=== PATIENT | male | born 1975 | race Caucasian/White ===

== ENCOUNTER 2018-05-27 19:08 | Emergency (ER) | payer BC ==
[2018-05-27] MEDS ORDERED: HYDROmorphone 0.5 MG/0.5 ML SYRINGE IVP STA (20:08)
[2018-05-27] MEDS ORDERED: ONDANSETRON 4 MG/2 ML VIAL IVP STA (20:08)
--- NOTE | 2018-05-27 20:28 | ED ---
Fall HPI <Deacon Hemphill - Last Filed: 05/27/18 21:30> - General Source: patient Mode of arrival: wheelchair <Fariba Ambrocio - Last Filed: 05/28/18 04:49> - General Chief Complaint: Fall Stated Complaint: Fell off sea wall 8 to 10 ft legs injury Time Seen by Provider: 05/27/18 19:38 - History of Present Illness Initial Comments: 42-year-old male patient presents the emergency department today for evaluation after sustaining a fall from a seawall. He states the fall was approximately 5 feet. Patient states approximately half an hour prior to arrival he was going down to get some rocks from the water when he slipped and fell striking his head on a rock. Patient is complaining of severe right shoulder pain. He is also complaining of pain to his right knee. Patient denies any current headache. States he was not having any neck pain. Patient states he does not believe he lost consciousness. He denies any nausea or vomiting currently. Denies any chest pain, shortness of breath, or abdominal pain. Patient denies any back pain, dizziness, weakness, numbness, or tingling. (Fariba Ambrocio) - Related Data Home Medications Medication Instructions Recorded Confirmed Ranitidine HCl [Zantac] 75 mg PO DAILY PRN 05/27/18 05/27/18 Previous Rx's Medication Instructions Recorded Hydrocodone/Acetaminophen [[place] 1 tab PO Q6HR PRN #12 tab 05/27/18 5-325] Ibuprofen [Motrin] 600 mg PO Q8HR PRN #30 tab 05/27/18 Allergies Allergy/AdvReac Type Severity Reaction Status Date / Time No Known Allergies Allergy Verified 05/27/18 19:44 Review of Systems ROS Other: All systems not noted in ROS Statement are negative. <Deacon Hemphill - Last Filed: 05/27/18 21:30> ROS Other: All systems not noted in ROS Statement are negative. <Fariba Ambrocio - Last Filed: 05/28/18 04:49> ROS Statement: Those systems with pertinent positive or pertinent negative responses have been documented in the HPI. Past Medical History Past Medical History: No Reported History History of Any Multi-Drug Resistant Organisms: None Reported Past Surgical History: No Surgical Hx Reported Past Psychological History: No Psychological Hx Reported Smoking Status: Never smoker Past Alcohol Use History: None Reported Past Drug Use History: None Reported <Fariba Ambrocio M - Last Filed: 05/28/18 04:49> General Exam Limitations: no limitations General appearance: alert, in no apparent distress, other (This is a well- developed, well-nourished adult male patient in mild distress related to pain. Vital signs upon presentation are temperature 98.6F, pulse 87, respirations 18 , blood pressure 138/93, pulse ox 98% on room air.) Head exam: Present: normocephalic, normal inspection, other (Patient has 3 cm stellate laceration noted to the left eyebrow, surrounding swelling and ecchymosis.) Eye exam: Present: normal appearance, PERRL, EOMI, periorbital tenderness (Left upper orbit. No bony step off or deformity), other (No conjunctival injection, hyphema, or evidence of globe injury to the left eye. ). Absent: scleral icterus, conjunctival injection, nystagmus, periorbital swelling ENT exam: Present: normal exam, normal oropharynx, mucous membranes moist Neck exam: Present: normal inspection, full ROM, other (Nontender, no step-off, no deformity to firm midline palpation of the posterior cervical spine. Full range of motion without pain or limitation.). Absent: tenderness, meningismus, lymphadenopathy Respiratory exam: Present: normal lung sounds bilaterally. Absent: respiratory distress, wheezes, rales, rhonchi, stridor Cardiovascular Exam: Present: regular rate, normal rhythm, normal heart sounds. Absent: systolic murmur, diastolic murmur, rubs, gallop, clicks GI/Abdominal exam: Present: soft, normal bowel sounds. Absent: distended, tenderness, guarding, rebound, rigid Extremities exam: Present: full ROM, tenderness (Right anterior knee tenderness) , normal capillary refill, other (There is 3 cm laceration noted to the right anterior knee over the patella, superficial. There is a 2 cm laceration noted over the right anterolateral proximal lower leg. Superficial abrasion noted over the right anterior lower leg. Skin to the lower extremities is pink, warm, and dry. Cap refills less than 3 seconds. Pedal and posttibial pulses are 2+ and equal bilaterally. States deformity to the right shoulder, the shoulder appears to be dislocated. Skin to the right upper arm is pink, warm, and dry. Cap refills less than 3 seconds. Radial pulses 2+ and equal bilaterally.). Absent: normal inspection, pedal edema, joint swelling, calf tenderness Back exam: Present: normal inspection, other (Nontender, no step-off, no deformity to firm midline palpation of the thoracic and lumbar vertebrae. Full range of motion without pain or limitation.). Absent: vertebral tenderness Neurological exam: Present: alert, oriented X3, CN II-XII intact Psychiatric exam: Present: normal affect, normal mood Skin exam: Present: warm, dry, intact, normal color. Absent: rash <Fariba Ambrocio M - Last Filed: 05/28/18 04:49> Vital Signs 05/27/18 05/27/18 05/27/18 19:13 20:59 21:02 Temperature 98.6 F Pulse Rate 87 88 94 Respiratory 18 16 16 Rate Blood Pressure 138/93 167/86 166/93 O2 Sat by Pulse 98 100 98 Oximetry 05/27/18 05/27/18 05/27/18 21:08 21:13 21:17 Temperature Pulse Rate 87 89 90 Respiratory 16 16 16 Rate Blood Pressure 163/87 180/96 184/97 O2 Sat by Pulse 97 97 97 Oximetry 05/27/18 05/27/18 05/27/18 21:22 21:28 23:32 Temperature 97.3 F L Pulse Rate 89 92 94 Respiratory 16 16 16 Rate Blood Pressure 163/82 149/71 155/90 O2 Sat by Pulse 98 97 96 Oximetry Procedures - Orthopedic Joint Reduction Joint #1 Consent Obtained: verbal consent, written consent Time Out Performed: Yes Side: right Joint Reduction Location: shoulder Analgesia: procedural sedation Shoulder Technique Used (if applicable): external rotation Post-Reduction Neuro Exam: intact Post-Reduction Vascular Exam: intact Post Reduction X-Ray Obtained: Yes Post Reduction X-Ray Results: reduced Splint Applied: Yes (Sling) Patient Tolerated Procedure: well - Procedural Sedation Procedural Sedation Start Time: 20:55 Indications: fracture/dislocation reduction ASA Class: I Mallampati Airway Score: 2 Preparation: secured entrance monitor applied, pulse oximeter, capnometry used, supplemental O2 applied, reversal agents at bedside, suction/airway equipment at bedside, IV secured Fentanyl: IV Fentanyl Dose: 50 Midazolam: IV Midazolam Dose: 5 IV Propofol Dose (mgs): 130 Complications: hypoventilation (Brief episode of hypoventilation wished resolved after repositioning the patient.) Patient Tolerated Procedure: well (Stop time was 9:29 PM) <JobyDeacon - Last Filed: 05/27/18 21:30> Medical Decision Making <Deacon Hemphill - Last Filed: 05/27/18 21:30> - Radiology Data Radiology results: report reviewed, image reviewed <Fariba Ambrocio - Last Filed: 05/28/18 04:49> - Medical Decision Making 42-year-old male patient presented to the emergency department today for evaluation of right shoulder pain and right knee pain after falling approximately 5 feet on a seawall into some rocks. Patient denied any loss of consciousness. He is neurologically intact. Has no neck or back pain. Right shoulder did appear deformed upon arrival. X-ray did show a chip fracture of the right humeral head and a anterior dislocation of the right shoulder. X-ray of the right knee was negative. My attending Dr. Hemphill was in to evaluate patient, did perform reduction of the shoulder with conscious sedation. Patient tolerated the procedure well. Repeat x-ray did show that the shoulder was back in anatomic position however redemonstrated the large chip fracture. Patient also had a 4 cm laceration to the left eyebrow, this was repaired as documented. Patient was updated on his tetanus. He is given pain medication. Patient is from out of town, he will seek orthopedic care in his hometown. He is given a disc of his x-rays. He is instructed to have sutures removed in 5 days. He is instructed to follow-up with his primary care physician for recheck , to 2 days. He is instructed to return here proceed to the nearest emergency department for any new, worsening, or concerning symptoms. Return parameters discussed in detail. He verbalizes understanding and agrees this plan. (Fariba Ambrocio) - Radiology Data Limited x-ray of the right shoulder was obtained. There is anatomic reduction of the humeral head. There is large chip fracture of the greater tuberosity. Details limited portable technique. Impression by Dr. Smith shows anatomic reduction, large chip fracture of the greater tuberosity. Single view of the right shoulder was obtained. There is anterior dislocation of the humeral head. There is probably a large chip fracture of the greater tuberosity. Impression by Dr. Smith shows anterior fracture dislocation of the shoulder joint. 3 views of the right knee are obtained. There is no fracture or dislocation. Joint spaces are normal. Impression by Dr. Smith shows negative right knee exam. CT of the brain and C-spine were performed without contrast. Report was reviewed in its entirety. Impression by Dr. Smith shows normal computed tomography scan of the brain. Negative computed tomography scan of the cervical spine. (Fariba Ambrocio) Disposition <Deacon Hemphill - Last Filed: 05/27/18 21:30> Is patient prescribed a controlled substance at d/c from ED?: Yes When asked, does pt state using other controlled substances?: Yes If prescribed controlled substance>3 days was MAPS reviewed?: Prescribed <3 Days If opioid is for acute pain is fill amount 7 days or less?: Yes If Rx opioid, was Start Talking consent form obtained?: Yes Time of Disposition: 23:14 <Fariba Ambrocio - Last Filed: 05/28/18 04:49> Clinical Impression: Laceration of left eyebrow, Fracture dislocation of right shoulder joint, Contusion of right knee, Abrasion of right knee, Abrasion of right lower leg Disposition: HOME SELF-CARE Condition: Good Instructions: Arm Fracture in Adults (ED), Shoulder Dislocation (ED), Contusion in Adults (ED), Abrasion (ED) Additional Instructions: Keep sling in place until follow-up with orthopedics. Take pain medication as directed. Take ibuprofen every 6 hours as needed. Follow-up with the primary care physician for recheck in 1-2 days. Have stitches removed in 5 days. Monitor wounds for signs or symptoms of infection including but not limited to redness, swelling, drainage of pus, fever, or chills. Return here or to the nearest emergency department for any new, worsening, or concerning symptoms. Prescriptions: Hydrocodone/Acetaminophen [[place] 5-325] 1 tab PO Q6HR PRN #12 tab PRN Reason: Pain Ibuprofen [Motrin] 600 mg PO Q8HR PRN #30 tab PRN Reason: Pain Referrals: Nonstaff,Physician [Primary Care Provider] - 1-2 days
[2018-05-27] MEDS ORDERED: fentaNYL (PF) 50 MCG/ML 2 ML AMP IV STA (20:29)
[2018-05-27] MEDS ORDERED: PROPOFOL 10 MG/ML 20 ML VIAL IV STA (20:30)
[2018-05-27] MEDS ORDERED: MIDAZOLAM 1 MG/ML 5 ML VIAL IV STA (20:30)
[2018-05-27 21:00] VITALS: RESP 16
--- NOTE | 2018-05-27 21:13 | XR ---
EXAMINATION TYPE: XR shoulder limited RT DATE OF EXAM: 05/27/2018 COMPARISON: NONE HISTORY: Shoulder pain after falling TECHNIQUE: Single view FINDINGS: There is anterior dislocation of the humeral head. There is probably a large chip fracture of the greater tuberosity. IMPRESSION: Anterior fracture dislocation of the shoulder joint.
--- NOTE | 2018-05-27 21:30 | XR ---
EXAMINATION TYPE: XR knee complete RT DATE OF EXAM: 05/27/2018 COMPARISON: NONE HISTORY: Fall. Pain. TECHNIQUE: 3 views FINDINGS: I see no fracture nor dislocation. Joint spaces are normal. IMPRESSION: Negative right knee exam.
--- NOTE | 2018-05-27 21:31 | XR ---
EXAMINATION TYPE: XR shoulder limited RT DATE OF EXAM: 05/27/2018 COMPARISON: Today HISTORY: Post reduction TECHNIQUE: Single view FINDINGS: There is anatomic reduction of the humeral head. There is a large chip fracture of the grea ter tuberosity. Detail is limited by portable technique. IMPRESSION: Anatomic reduction. Large chip fracture of the greater tuberosity.
[2018-05-27] MEDS ORDERED: DIPH,PERTUS(ACELL)TETVAC-LF 0.5 ML VIAL IM ONE (21:40)
[2018-05-27] MEDS ORDERED: LIDOCAINE 1% INJ 10MG/ML (20 ML MDV) SQ ONE (21:40)
--- NOTE | 2018-05-27 22:00 | CT ---
EXAMINATION TYPE: CT brain mary shearer con DATE OF EXAM: 05/27/2018 COMPARISON: NONE HISTORY: 8 to 10ft fall injury today CT DLP: 1541.7 mGycm Automated exposure control for dose reduction was used. TECHNIQUE: CT scan of the head and cervical spine are performed without contrast. FINDINGS: Ventricles and sulci appear normal. There is no mass effect nor midline shift. There is n o sign of intracranial hemorrhage. The calvarium is intact. Cervical vertebra have normal spacing and alignment. Posterior elements are intact. Facet joints appe ar normal. The skull base appears intact. IMPRESSION: Normal CT scan of the brain. Negative CT scan of the cervical spine.
[2018-05-27] MEDS ORDERED: HYDROcodone/APAP 7.5-325MG 1 EACH TAB PO STA (22:44)
[2018-05-27] MEDS ORDERED: ACET/COD 300 MG/30 MG STARTER PACK 6 TAB BTL PO STA (23:14)
[2018-05-27] MEDS ORDERED: IBUPROFEN 600 MG TAB PO STA (23:14)
[2018-05-27 23:34] VITALS: BP 155/90; PULSE 94; TEMP 97.3
--- NOTE | 2018-05-28 08:28 | CDI ---
Documentation Clarification OP Dear Cristóbal SALINAS Please provide eyebrow laceration repair note. Thank you, Zeferino Cardenas Folding Machine Operator If you have any questions, please contact [employer] Director at [phone] [facility]
== END 2018-05-27 23:50 | disposition home or self-care (01) ==
LOC: EC 19:08
DX: S42.201A Unspecified fracture of upper end of right humerus, initial encounter for closed fracture (principal); S43.014A Anterior dislocation of right humerus, initial encounter; S01.112A Laceration without foreign body of left eyelid and periocular area, initial encounter; S80.01XA Contusion of right knee, initial encounter; S80.811A Abrasion, right lower leg, initial encounter; Z23 Encounter for immunization; W13.8XXA Fall from, out of or through other building or structure, initial encounter; Y92.832 Beach as the place of occurrence of the external cause
CPT/HCPCS: 99284 ×2; 23650 ×2; 99152 ×2; 99153 ×2; 12013 ×2; 96374 ×2; 96375 ×3; 90471 ×2; 73020; 73562; 72125; 70450; 90715; L3670; J2405; J2001; J2250; J3010; J2704; J1170